=== PATIENT | male | born 1950 | race Caucasian/White ===

== ENCOUNTER → 2016-09-07 | Outpatient (REF) | payer MEDICARE | LOC: M LAB REF 09:21 | PROVIDERS: ATTEND Otolaryngology | DX: C05.1 Malignant neoplasm of soft palate (principal) ==

== ENCOUNTER → 2016-10-19 | Outpatient (CLI) | payer MEDICARE ==
[2016-10-19 13:04] LABS: BLOOD UREA NITROGEN 6 MG/DL (7-18); CREATININE FOR GFR 0.99 MG/DL (0.70-1.30); GLOMERULAR FILTRATION RATE > 60.0 (>49)
== END ==
LOC: M LAB 12:04
PROVIDERS: ATTEND Otolaryngology
DX: D37.09 Neoplasm of uncertain behavior of other specified sites of the oral cavity (principal)

== ENCOUNTER → 2016-10-19 | Outpatient (CLI) | payer MEDICARE ==
--- NOTE | 2016-10-20 09:03 | REP ---
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 Comparisons: No comparison imaging. TECHNIQUE: 51 minutes following the intravenous injection of a 11.0 mCi dose of F-18 FDG, three-dimensional PET scintigraphy is acquired from the skull base to the proximal thighs. Triplanar noncontrast CT scanning is acquired through the same anatomic range for attenuation correction, and image registration with scan parameters optimized to minimize radiation exposure to the patient. PET scintigraphy and CT datasets were fused and displayed on a workstation with multiplanar and projection display capability. PET/CT Findings: There is a large area of markedly hypermetabolic soft tissue involving the soft palate to the right of midline. This area measures 2.6 cm in greatest AP dimension. This lesion appears to cross the midline in the soft palate. Inferolaterally it extends along the tonsillar pillar into the lateral pharyngeal wall and down into the preepiglottic space. Maximum standard uptake value within this lesion is 17.0. There is hypermetabolic lymph node uptake consistent with a metastasis in the right anterior cervical lymph node chain with maximum standard uptake value 12.7. This kwame focus measures 2.3 cm in greatest diameter. No other hypermetabolic kwame uptake is seen. There is some FDG accumulation in the left tonsillar soft tissues without discernible mass. Maximum standard uptake value 4.7. This may be a normal variant oral pharyngeal uptake. Correlation with clinical exam suggested. The head and neck soft tissues are otherwise unremarkable. There is no abnormal hypermetabolic uptake in the chest. In the abdomen and pelvis there is normal hepatic, splenic, gastrointestinal, and genitourinary FDG accumulation. No abnormal FDG accumulation is seen. Impression: Hypermetabolic uptake in the right soft palate crossing the midline and extending along the lateral pharyngeal wall to the pre-epiglottic space with a hypermetabolic right neck kwame metastasis. Left tonsillar uptake likely normal variant, correlate with physical exam. Signed by Giuseppe Lew MD 10/20/2016 03:18 P
== END ==
LOC: M PLARAD 15:02
PROVIDERS: ATTEND Otolaryngology
DX: C05.1 Malignant neoplasm of soft palate (principal); D37.09 Neoplasm of uncertain behavior of other specified sites of the oral cavity
CPT/HCPCS: 36415; 78815; 82565; 84520; A9552

== ENCOUNTER → 2016-10-25 | Outpatient (CLI) | payer MEDICARE ==
[~2016-10-25] MED LIST: ISOVUE-370 76% 100ML VIAL (Q9967) As Ordered ONE
--- NOTE | 2016-10-25 15:16 | REP ---
CT NECK WITH CONTRAST: HISTORY: Oral cavity neoplasm. CONTRAST: Isovue 370, 75 mL. There is thickening of the soft palate on the right. There is posterior extension into the right tonsil. There is minimal enlargement of the right tonsil. There is inferior extension into the right lateral wall of the upper oropharynx. There is no definite extension into the left side of the soft palate. There appears to be a defect in the inferior aspect of the soft palate on the right. This is best seen on coronal images 32 and 33. There is minimal mass effect on the oropharynx. The naso- and hypopharynx, larynx and subglottic trachea are normal in appearance. The salivary and thyroid glands are normal in size and density. An enlarged lymph node 1.5 cm in width is present in the right internal jugular chain at the level of the oropharynx. Small lymph nodes less than 1 cm in size are present in the left internal jugular chain posterior triangles, submandibular and submental areas. Atherosclerotic calcifications is present at the carotid bifurcations. Minimal degenerative change is present in the cervical spine. The lung apices are clear. The visualized sinuses are clear. IMPRESSION: There is a soft tissue thickening of the soft palate on the right with extension into the right tonsil and right lateral wall of the upper oropharynx consistent with a neoplasm. There is minimal mass effect on the oropharynx. Signed by Naresh Lowery MD 10/25/2016 03:25 P
--- NOTE | 2016-10-25 15:37 | REP ---
MAXILLOFACIAL CT WITH CONTRAST: HISTORY: Oral cavity neoplasm. CONTRAST: Isovue 370, 75 mL. The sinuses are clear. The osteomeatal units are patent. The middle and inferior nasal turbinates are partially paradoxical. There is minimal deviation of the nasal septum to the left. A spur is present arising from the left side of the nasal septum. The cribriform plate, medial garcia of the orbits, and optic canals are intact. The carotid canals form a segment of the posterolateral garcia of the sphenoid sinus. The right sphenoid sinus septum inserts into the right internal carotid canal wall. There is thickening of the right side of the soft palate. There is posterior extension into the right tonsil. There is minimal enlargement of the right tonsil. There is inferior extension of the tonsil enlargement into the right lateral wall of the upper oropharynx. There is no definite extension across the midline. There appears to be a defect in the inferior aspect of the soft palate on the right. This is best seen on coronal images 32 and 33. The naso- and hypopharynx are normal in appearance. There is very minimal irregularity of the inferior aspect of the hard palate on the right. The salivary glands are normal in size and density. An enlarged lymph node 1.5 cm in width is present in the right internal jugular chain at the level of the oropharynx. Small lymph nodes less than 1 cm in size are present in the left internal jugular chain, posterior triangles, submandibular and submental areas. Atherosclerotic calcifications are present at the carotid bifurcations. Degenerative change is present in the cervical spine. IMPRESSION: 1. There is no acute or chronic sinusitis. 2. There is soft tissue thickening of the right side of the soft palate with extension into the right tonsil and right lateral wall of the oropharynx consistent with a neoplasm. There is minimal mass effect on the upper oropharynx. Signed by Naresh Lowery MD 10/25/2016 03:54 P
== END ==
LOC: M RAD 14:05
PROVIDERS: ATTEND Otolaryngology
DX: D37.09 Neoplasm of uncertain behavior of other specified sites of the oral cavity (principal)
CPT/HCPCS: 70487; 70491; Q9967

== ENCOUNTER → 2016-10-28 | Outpatient (CLI) | payer MEDICARE ==
--- NOTE | 2016-10-30 10:24 | RADONC ---
RADIATION ONCOLOGY CONSULTATION NOTE DATE: 10/28/2016 CHART NUMBER: [id number] DIAGNOSIS: Soft palate cancer. STAGE: III, T2N1M0. ECOG PERFORMANCE STATUS: 0 CONSULTATION NOTE: Mr. 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 HISTORY OF PRESENT ILLNESS: The patient was in his usual state of health but began having some discomfort over his right soft palate. On 09/08/2016 he underwent a punch biopsy and pathology revealed a moderate to poorly differentiated squamous cell carcinoma. A PET scan was done on 10/19/2016 which revealed an area of hypermetabolic uptake with an SUV value of 17.0 extending from the right soft palate crossing midline. The tumor extended into the right tonsillar pillar and into the lateral pharyngeal wall and down into the preepiglottic space. The lesion measured 2.6 cm. In addition, there was an kwame focus measuring 2.3 cm in the right anterior cervical lymph node chain. This had an SUV value of 12.7. There was some contralateral left tonsillar soft tissue hypermetabolic uptake at 4.7, which was thought to be a normal variant. The patient is now being referred to me for consideration of definitive external beam radiation therapy with IMRT/IGRT. PAST MEDICAL HISTORY: The patient's past medical history is positive for hypertension and arthritis. He had umbilical and inguinal hernia surgery in the past. ALLERGIES: The patient has NO KNOWN DRUG ALLERGIES. SOCIAL HISTORY: The patient has smoked two packs of cigarettes per day for 45 years for a 90 pack-year smoking history. He does not abuse alcohol. FAMILY HISTORY: The patient's family history is negative for head and neck cancers or other malignancies. REVIEW OF SYSTEMS: The patient's review of systems is positive for difficulty chewing since he is edentulous. He has some loss of appetite and some weight loss since he has difficulty with discomfort in the soft palate region. He has occasional headaches. He denies nausea, vomiting, fevers, chills, night sweats, diplopia, chest pains, visual disturbances, rectal bleeding, urinary or bowel problems or bone pain. IMAGING: I have personally reviewed the patient's PET CT scan with the findings noted above. MEDICAL NECESSITY: IMRT/IGRT is clinically indicated for the highly conformal dose planning required. The target volume is in close proximity to critical structures, such as the normal brain, brainstem, eyes, optic nerves, spinal cord, parotid glands, and mandible. The volume of interest must be covered with narrow margins to adequately protect immediately adjacent structures. The plan requires interpretation of complex testing such as CT localization. As noted above, special planning (IMRT) and localizing (IGRT) is required and essential to maximally protect sensitive normal tissue structures which cannot be accomplished using conventional 3-dimensional planning. PHYSICAL EXAMINATION The patient is a well-developed, well-nourished white male in no acute distress. HEENT: Exam is normocephalic, atraumatic. Extraocular movements are intact. Examination of the patient's oral cavity reveals a lesion measuring approximately 3 cm or so, involving his right soft palate extending to his right pharyngeal wall and tonsillar pillar. There are no other nodules or lesions in the oral cavity. The patient is edentulous. There is no palpable preauricular lymphadenopathy present. There is 2-3 cm right anterior cervical lymph node, which is hard. There is no other lymphadenopathy in the right cervical chain. There is no lymphadenopathy in the left cervical chain or the infraclavicular or supraclavicular lymph node drainage sites. There is no axillary lymphadenopathy. The patient's lungs are clear to auscultation and percussion. His heart has regular rate and rhythm. His abdomen is benign with no splenomegaly, masses or tenderness. The remainder of his physical exam remains normal limits. ASSESSMENT: Clearly the patient is a candidate for definitive external beam radiation therapy combined with chemotherapy utilizing IMRT/IGRT. I have discussed with the patient in detail the potential benefits as well as possible acute and chronic sequelae of external beam radiation therapy. We have discussed the logistics of treatment planning, simulation and subsequent fractionated daily radiation treatments. We also discussed combination chemotherapy and radiation. The patient clearly does not need a dental consultation at this point since he is edentulous. I am setting him up, however with a surgical consultation for discussion of possible PEG tube. We also discussed dietary supplements. Thank you for allowing us to participate in the care of this very pleasant gentleman. We will be coordinating his care closely with our colleagues in medical oncology. If I could be of any further assistance or provide you any information, please free to contact me anytime. cc: MD Daisha Greene PA [place], MD
--- NOTE | 2016-11-03 08:44 | RADONC ---
RADIATION ONCOLOGY PROGRESS NOTE DATE: 11/02/2016 CHART NUMBER: [id number] PROGRESS NOTE: I received a phone call today from Mr. Bradford's who says that he does not wish to initiate radiation or chemotherapy at this time. She says that he has too much to do at the present and is just too busy to undergo treatment. Apparently, he needs to chop wood for the next month or so. I had a very lengthy discussion with this patient's . Apparently, the patient was sleeping. She reports that he has no intention of going to his medical oncology consultation with Dr. Miranda today. She will let us know if he is willing to start radiation in the future. I made quite clear to her in no uncertain terms the risks involved. I let her know that this is cancer and it is only going to get bigger. I let her know with increased size of the lesion the cure rates diminish. In addition, I let her know that as the area we need to treat becomes larger the side effects become more severe. I explained to her that we could treat him in the morning or afternoon, whatever is convenient to them. That would leave the remainder of the day for him to chop wood. We could work around his would chopping schedule to accommodate him. Once again, in summary, I explained to the the risks of not undergoing treatment at this point. I let her know quite clearly that this is a curable disease at this time and that may in the future no longer be the case. Since she is cancelling the medical oncology appointment and has requested that we set up no appointments with them at this point, I am discharging him from our treatment schedule and followup. cc: MD Ji Knox MD Heather Emanuel, PA
== END ==
LOC: M ONCR 12:59
PROVIDERS: ATTEND Radiology Radiation Oncology
DX: C05.1 Malignant neoplasm of soft palate (principal)

== ENCOUNTER → 2017-03-23 | Outpatient (CLI) | payer MEDICARE | LOC: M PLARAD 09:19 | DX: C05.1 Malignant neoplasm of soft palate (principal) | CPT/HCPCS: 78815 ==

== ENCOUNTER → 2017-03-24 | Outpatient (CLI) | payer MEDICARE | LOC: M ONCR 09:57 | DX: C05.1 Malignant neoplasm of soft palate (principal) ==

== ENCOUNTER 2017-04-12 14:17 | Outpatient (RCR) | payer MEDICARE | END 2017-04-27 | LOC: M ONCR 14:17 | DX: C05.1 Malignant neoplasm of soft palate (principal); Z51.89 Encounter for other specified aftercare (principal) | CPT/HCPCS: 77300 ==

== ENCOUNTER → 2017-04-12 | Outpatient (CLI) | payer MEDICARE | LOC: M RAD 10:19 | DX: C05.1 Malignant neoplasm of soft palate (principal) ==

== ENCOUNTER 2017-04-28 10:13 | Outpatient (RCR) | payer MEDICARE | END 2017-05-28 | LOC: M ONCR 10:13 | DX: C05.1 Malignant neoplasm of soft palate (principal) ==